=== PATIENT | female | born 1990 | race African-American/Black ===

== ENCOUNTER 2024-10-11 18:32 | Emergency (ER) | payer BC ==
[2024-10-11 18:39] VITALS: BP 107/67; PULSE 102; RESP 19; TEMP 100.8; BMI 27.5
[2024-10-11] MEDS ORDERED: DEXAMETHASONE SOD PHOSPHATE 10 MG/1 ML VIAL ONE (19:22)
[2024-10-11] MEDS ORDERED: IBUPROFEN 600 MG TABLET (FP) PO ONE (19:22)
[2024-10-11] MEDS: DEXAMETHASONE SOD PHOSPHATE 10 MG/1 ML VIAL PO ONE (19:37)
[2024-10-11] MEDS: IBUPROFEN 600 MG TABLET (FP) PO ONE (19:37)
[2024-10-11] MEDS: CODEINE SO4 30 MG TABLET PO ONE (19:38)
== END 2024-10-11 19:40 | disposition home or self-care (01) ==
LOC: JER 18:32
DX: R05.9 Cough, unspecified (principal); J06.9 Acute upper respiratory infection, unspecified; R51.9 Headache, unspecified; R09.81 Nasal congestion; R50.9 Fever, unspecified
CPT/HCPCS: 0241U-QW; 99283-25; J1100